=== PATIENT | female | born 1940 | race Caucasian/White ===

== ENCOUNTER 2022-09-09 06:27 | Day surgery (SDC) | payer MEDICARE ==
[~2022-09-09 06:27] MED LIST: CYCLOPENTOLATE 1% OPHTH DROPS 2 ML ONE; KETOROLAC 0.45% OPHTH DROPS ONE; PHENYLEPHRINE 2.5% OPHTH 2 ML DROPS ONE; PROPARACAINE 0.5% OPHTH DROPS 15 ML ONE
[2022-09-09] MEDS ORDERED: LACTATED RINGERS 1,000 ML IV ONE ×2 (06:59→08:02)
--- NOTE | 2022-09-09 07:07 | ANESTHESIA ---
Pre-Anesthesia VS, & Labs - Diagnosis R senile cataract - Procedure R extraction cataract w/IOL Vital Signs: Temp Pulse Resp BP Pulse Ox O2 Flow Rate 36.2 C L 64 18 176/92 H 100 09/09/22 06:39 09/09/22 06:39 09/09/22 06:39 09/09/22 06:39 09/09/22 06:39 Height: 5 ft 6 in Weight (kg): 86 kg Body Mass Index: 30.6 BMI Classification: Obese - NPO >8 hours - Is Patient ?: No - Lab Results Lab results reviewed: Yes Home Medications and Allergies Home Medications: Ambulatory Orders Amlodipine Besylate [Norvasc] 2.5 mg PO DAILY 09/09/22 Atenolol [Tenormin] 50 mg PO 09/09/22 Atorvastatin [Lipitor] 10 mg PO DAILY 09/09/22 Irbesartan [Avapro] 150 mg PO DAILY 09/09/22 Ubidecarenone [Co Q-10] 10 mg PO DAILY 09/09/22 hydroCHLOROthiazide [Hydrochlorothiazide] 50 mg PO DAILY 09/09/22 Amlodipine Besylate [Norvasc] 2.5 mg PO DAILY 09/09/22 Atenolol [Tenormin] 50 mg PO 09/09/22 Atorvastatin [Lipitor] 10 mg PO DAILY 09/09/22 Irbesartan [Avapro] 150 mg PO DAILY 09/09/22 Ubidecarenone [Co Q-10] 10 mg PO DAILY 09/09/22 hydroCHLOROthiazide [Hydrochlorothiazide] 50 mg PO DAILY 09/09/22 Allergies/Adverse Reactions: Allergies Allergy/AdvReac Type Severity Reaction Status Date / Time shellfish derived Allergy Unknown Verified 09/08/22 13:47 Anes History & Medical History - Anesthetic History Anesthesia Complications: reports: No previous complications Family history of Anesthesia Complications: Denies Family history of Malignant Hyperthermia: Denies - Medical History Cardiovascular: reports: Hypertension Pulmonary: reports: None Urinary: reports: None Musculoskeletal: reports: None Endocrine/Autoimmune: reports: None Skin: reports: None - Surgical History General: reports: Cholecystectomy, Appendectomy, Colonoscopy Gynecologic: reports: Dilation and currettage, Hysterectomy Exam General: Alert, Oriented x3, Cooperative Dental: WNL Mouth Openin Fingerbreadth Neck Mobility: Normal Mallampati classification: II Thyromental Distance: 4-6 cm Respiratory: Lungs clear, Normal breath sounds, No respiratory distress Plan Anesthesia Type: MAC Consent for Procedure(s) Verified and Reviewed: Yes Code Status: Attempt Resuscitation ASA classification: 2-Mild systemic disease Is this case an emergency?: No
[2022-09-09] MEDS ORDERED: MIDAZOLAM 2 MG/2 ML VIAL ONE (07:10)
[2022-09-09] MEDS ORDERED: BRIMONIDINE 0.2% OPHTH DROPS 5 ML ONE (07:11)
[2022-09-09] MEDS ORDERED: TIMOLOL 0.5% OPHTH DROPS ONE (07:11)
[2022-09-09] MEDS ORDERED: EPINEPHrine 1 MG/ML AMP ONE ×2 (07:11→07:13)
[2022-09-09] MEDS ORDERED: TRIAMCIN/MOXIFLOX OPHTHALMIC 0.6 ML VIAL IO ONE ×3 (07:11→07:52)
[2022-09-09] MEDS ORDERED: VANCOMYCIN OPHTH (TOPICAL) 10 MG/ML SYRINGE ONE (07:12)
[2022-09-09] MEDS ORDERED: BSS/LIDOCAINE/EPINEPHRINE 1 ML VIAL ONE (07:12)
[2022-09-09] MEDS ORDERED: BRIMONIDINE 0.2% OPHTH DROPS 5 ML OPTH ONE (07:51)
[2022-09-09] MEDS ORDERED: TIMOLOL 0.5% OPHTH DROPS OPTH ONE (07:51)
[2022-09-09] MEDS ORDERED: EPINEPHrine 1 MG/ML AMP IR ONE (07:51)
[2022-09-09] MEDS ORDERED: BSS/LIDOCAINE/EPINEPHRINE 1 ML SYRINGE IO ONE (07:52)
[2022-09-09] MEDS ORDERED: PROPARACAINE 0.5% OPHTH DROPS 15 ML RIGHTEYE ONE (07:52)
[2022-09-09] MEDS ORDERED: VANCOMYCIN OPHTH (TOPICAL) 10 MG/ML SYRINGE TOP ONE (07:52)
--- NOTE | 2022-09-09 08:13 | ANESTHESIA POST OP EVALUATION ---
Anesthesia Post Eval - Post Anesthesia Eval Vitals: Last Vital Signs Temp 36.7 C 09/09/22 08:02 Pulse 63 09/09/22 08:02 Resp 18 09/09/22 08:02 BP 152/63 H 09/09/22 08:02 Pulse Ox 100 09/09/22 08:02 O2 Flow Rate CV Function Including HR & BP: Stable Pain Control: Satisfactory Nausea & Vomiting: Negative Mental Status: Baseline Respiratory Status: Airway Patent Hydration Status: Satisfactory Anesthesia Complications: None
--- NOTE | 2022-09-09 08:16 | OPERATIVE REPORT ---
Operative Report - Procedure Note Pathology: Date of Surgery: 09/09/22 Preop Dx: Visually significant cataract right eye. This was the first cataract surgery. Postop Dx: Same Procedure: Phacoemulsification with posterior chamber toric intraocular lens implant right eye Surgeon: Dr. Rock Walters Anesthesia: Monitored anesthesia care Complications: None Operative Indications: This is a 82-year-old F with progressive vision loss in the right eye due to 4+ nuclear sclerotic and 1-2+ cortical cataract. Best corrected visual acuity was 20/60 with glare to light perception vision in the right eye. Indications for surgery were: - Overall decrease in vision - Difficulty seeing words on a computer screen - Difficulty reading - Difficulty seeing words, closed captions, or game scores on TV - Difficulty driving in low light or at night - Difficulty driving at night because of headlights from other vehicles - Difficulty with glare or bright lights in any situation The patient was consented at length concerning the risks and benefits of cataract surgery after which the patient expressed a desire to proceed with surgery. Operative Procedure: The patients cornea was marked in the pre-surgical area to indicate the axis for the toric intraocular lens. The patient was taken into OR#3 and placed under monitored anesthesia care. A surgical time-out was conducted confirming correct patient, correct procedure, and correct surgical site. The patient was given topical anesthesia and then prepped and draped in the usual sterile fashion. The eye was entered at the 6 and 3 oclock positions. Intracameral Shugarcaine was injected into the anterior chamber followed by a dispersive viscoelastic. A continuous-tear curvilinear capsulorhexis was performed. The nucleus was hydrodissected and phacoemulsified. The cortex was evacuated using automated infusion and aspiration. A cohesive viscoelastic was injected into the capsular bag and a 20.5 diopter toric intraocular lens was inserted into the bag and rotated to axis 033. Infusion and aspiration were used to evacuate the viscoelastic materials from the eye and the IOL was verified to remain on axis. The wounds were hydrated and the eye inflated to physiologic pressure using balanced salt solution. Approximately 0.25ml of a mixture of triamcinolone and moxifloxacin was injected trans- sclerally into the vitreous in the inferotemporal quadrant using a 30 gauge cannula. An additional 0.55ml of a mixture of triamcinolone and moxifloxacin was injected subconjunctivally in the superior quadrant for infection and inflammation prophylaxis. Wound integrity was checked with Weck-Lila sponges and the IOL axis was once again verified to be on the correct axis. The patient was taken from the operating room in good condition and given post-op instructions.
[2022-09-09 08:28] VITALS: BP 120/58
== END 2022-09-09 06:28 | disposition home or self-care (01) ==
LOC: SDS 06:27
PROVIDERS: ATTEND Ophthalmology
DX: H25.811 Combined forms of age-related cataract, right eye (principal); I10 Essential (primary) hypertension; E66.9 Obesity, unspecified; Z68.30 Body mass index [BMI] 30.0-30.9, adult
CPT/HCPCS: 66984; A9270; J3490; J7120; V2632; V2787

== ENCOUNTER 2022-12-16 07:24 | Day surgery (SDC) | payer MEDICARE ==
[2022-12-16] MEDS ORDERED: LACTATED RINGERS 1,000 ML IV ONE (07:54)
[2022-12-16] MEDS ORDERED: EPINEPHrine 1 MG/ML AMP ONE (08:19)
[2022-12-16] MEDS ORDERED: TRIAMCIN/MOXIFLOX OPHTHALMIC 0.6 ML VIAL IO ONE ×2 (08:19→08:46)
[2022-12-16] MEDS ORDERED: TIMOLOL 0.5% OPHTH DROPS ONE (08:19)
[2022-12-16] MEDS ORDERED: BRIMONIDINE 0.2% OPHTH DROPS 5 ML ONE (08:19)
[2022-12-16] MEDS ORDERED: VANCOMYCIN OPHTH (TOPICAL) 10 MG/ML SYRINGE ONE (08:20)
[2022-12-16] MEDS ORDERED: BSS/LIDOCAINE/EPINEPHRINE 1 ML SYRINGE ONE (08:20)
[2022-12-16] MEDS ORDERED: MIDAZOLAM 2 MG/2 ML VIAL ONE (08:32)
--- NOTE | 2022-12-16 08:33 | ANESTHESIA ---
Pre-Anesthesia VS, & Labs - Diagnosis L cataract - Procedure L PhacoIOL Vital Signs: Temp Pulse Resp BP Pulse Ox O2 Flow Rate 37.2 C 74 15 148/63 H 100 12/16/22 07:39 12/16/22 07:39 12/16/22 07:39 12/16/22 07:39 12/16/22 07:39 Height: 5 ft 6 in Weight (kg): 86 kg Body Mass Index: 30.6 BMI Classification: Obese - NPO >8 hours - Is Patient ?: No Home Medications and Allergies Amlodipine Besylate [Norvasc] 2.5 mg PO DAILY 09/09/22 Atenolol [Tenormin] 50 mg PO DAILY 09/09/22 Atorvastatin [Lipitor] 10 mg PO DAILY 09/09/22 Irbesartan [Avapro] 150 mg PO DAILY 09/09/22 Ubidecarenone [Co Q-10] 10 mg PO DAILY 09/09/22 hydroCHLOROthiazide [Hydrochlorothiazide] 50 mg PO DAILY 09/09/22 Allergies/Adverse Reactions: Allergies Allergy/AdvReac Type Severity Reaction Status Date / Time shellfish derived Allergy Unknown Verified 09/08/22 13:47 Anes History & Medical History - Anesthetic History Anesthesia Complications: reports: No previous complications Family history of Anesthesia Complications: Denies Family history of Malignant Hyperthermia: Denies - Medical History Cardiovascular: reports: Hypertension Pulmonary: reports: None Urinary: reports: None Musculoskeletal: reports: None Endocrine/Autoimmune: reports: None Skin: reports: None - Surgical History General: reports: Cholecystectomy, Appendectomy, Colonoscopy Eyes Ears Nose Throat (EENT): reports: Cataracts Gynecologic: reports: Dilation and currettage, Hysterectomy Exam General: Alert, Oriented x3, Cooperative Dental: WNL Mouth Openin Fingerbreadth Neck Mobility: Normal Mallampati classification: II Thyromental Distance: 4-6 cm Respiratory: Lungs clear Cardiovascular: Regular rate Plan Anesthesia Type: MAC Consent for Procedure(s) Verified and Reviewed: Yes Code Status: Attempt Resuscitation ASA classification: 2-Mild systemic disease Is this case an emergency?: No
[2022-12-16] MEDS ORDERED: TIMOLOL 0.5% OPHTH DROPS OPTH ONE (08:45)
[2022-12-16] MEDS ORDERED: BRIMONIDINE 0.2% OPHTH DROPS 5 ML OPTH ONE (08:45)
[2022-12-16] MEDS ORDERED: EPINEPHrine 1 MG/ML AMP IR ONE (08:45)
[2022-12-16] MEDS ORDERED: PROPARACAINE 0.5% OPHTH DROPS 15 ML EACHEYE ONE (08:46)
[2022-12-16] MEDS ORDERED: BSS/LIDOCAINE/EPINEPHRINE 1 ML SYRINGE IO ONE (08:46)
[2022-12-16] MEDS ORDERED: VANCOMYCIN OPHTH (TOPICAL) 10 MG/ML SYRINGE TOP ONE (08:46)
--- NOTE | 2022-12-16 09:04 | OPERATIVE REPORT ---
Operative Report - Other Other Information/Narrative: Date of Surgery: 12/16/22 Preop Dx: Visually significant cataract left eye. Cataract surgery was performed in the right eye on . Postop Dx: Same Procedure: Phacoemulsification with posterior chamber toric intraocular lens implant left eye Surgeon: Dr. Rock Walters Anesthesia: Monitored anesthesia care Complications: None Operative Indications: This is a 82-year-old F with progressive vision loss in the left eye due to 3+ nuclear sclerotic, 1-2+ cortical, and 1+ posterior subcapsular cataract. Best corrected visual acuity was 20/30 with glare to 20/80 vision in the left eye. Indications for surgery were: - Overall decrease in vision - Difficulty seeing words on a computer screen - Difficulty reading - Difficulty seeing words, closed captions, or game scores on TV - Difficulty driving in low light or at night - Difficulty driving at night because of headlights from other vehicles - Difficulty with glare or bright lights in any situation The patient was consented at length concerning the risks and benefits of cataract surgery after which the patient expressed a desire to proceed with surgery. Operative Procedure: The patients cornea was marked in the pre-surgical area to indicate the axis for the toric intraocular lens. The patient was taken into OR#3 and placed under monitored anesthesia care. A surgical time-out was conducted confirming correct patient, correct procedure, and correct surgical site. The patient was given topical anesthesia and then prepped and draped in the usual sterile fashion. The eye was entered at the 6 and 3 oclock positions. Intracameral Shugarcaine was injected into the anterior chamber followed by a dispersive viscoelastic. A continuous-tear curvilinear capsulorhexis was performed. The nucleus was hydrodissected and phacoemulsified. The cortex was evacuated using automated infusion and aspiration. A cohesive viscoelastic was injected into the capsular bag and a 20.5 diopter toric intraocular lens was inserted into the bag and rotated to axis 166. Infusion and aspiration were used to evacuate the viscoelastic materials from the eye and the IOL was verified to remain on axis. The wounds were hydrated and the eye inflated to physiologic pressure using balanced salt solution. Approximately 0.25ml of a mixture of triamcinolone and moxifloxacin was injected trans- sclerally into the vitreous in the inferotemporal quadrant using a 30 gauge cannula. An additional 0.25ml of a mixture of triamcinolone and moxifloxacin was injected subconjunctivally in the superior quadrant for infection and inflammation prophylaxis. Wound integrity was checked with Weck-Lila sponges and the IOL axis was once again verified to be on the correct axis. The patient was taken from the operating room in good condition and given post-op instructions.
[2022-12-16] MEDS ORDERED: LACTATED RINGERS 950 ML IV ONE (09:05)
[2022-12-16 09:16] VITALS: BP 113/57
--- NOTE | 2022-12-16 10:31 | ANESTHESIA POST OP EVALUATION ---
Anesthesia Post Eval - Post Anesthesia Eval Vitals: Last Vital Signs Temp 36.7 C 12/16/22 09:11 Pulse 60 12/16/22 09:11 Resp 16 12/16/22 09:11 BP 113/57 L 12/16/22 09:11 Pulse Ox 100 12/16/22 09:11 O2 Flow Rate CV Function Including HR & BP: Stable Pain Control: Satisfactory Nausea & Vomiting: Negative Mental Status: Baseline Respiratory Status: Airway Patent Hydration Status: Satisfactory Anesthesia Complications: None
== END 2022-12-16 07:25 | disposition home or self-care (01) ==
LOC: SDS 07:24
PROVIDERS: ATTEND Ophthalmology
DX: H25.812 Combined forms of age-related cataract, left eye (principal); Z98.41 Cataract extraction status, right eye; E66.9 Obesity, unspecified; Z68.30 Body mass index [BMI] 30.0-30.9, adult
CPT/HCPCS: 66984; A9270; J3490; J7120; V2632; V2787